=== PATIENT | male | born 1965 | race African-American/Black ===

== ENCOUNTER 2018-04-18 07:37 | Emergency (ER) | payer SELFPAY ==
--- NOTE | 2018-04-18 08:45 | RAD ---
LEFT WRIST THREE VIEWS: History: 52-year-old male with history of left wrist and hand pain and swelling for five days without injury. FINDINGS: There is some diffuse soft tissue swelling of the wrist and hand, both dorsally and on the lower aspe ct. 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 No acute fracture or dislocation. IMPRESSION: Generalized soft tissue swelling. Minimal arthrosis. No acute fracture or dislocation. POS: [facility]
== END 2018-04-18 08:30 | disposition home or self-care (01) ==
LOC: ERS 07:37
DX: M19.032 Primary osteoarthritis, left wrist (principal); Z71.6 Tobacco abuse counseling; I10 Essential (primary) hypertension; F17.210 Nicotine dependence, cigarettes, uncomplicated
CPT/HCPCS: 99406